=== PATIENT | male | born 1935 | race Caucasian/White ===

== ENCOUNTER 2018-04-10 11:10 | Outpatient (CLI) | payer MEDICARE ==
--- NOTE | 2018-04-10 11:50 | RAD ---
CERVICAL SPINE RADIOGRAPHS 4 VIEWS: DATE: 04/10/2018. PROVIDED CLINICAL HISTORY: Neck pain. FINDINGS: Comparison is made with the study dated 12/14/2014. Postoperative changes of the ACDF are again noted at C3-4 and C6-7. There is no evidence for hardware loosening or migration. Cervical degenerative changes are redemonstrated, with probable worsening of degenerative disk change at C5-6. The visuali zed lung apices appear clear. No prevertebral soft tissue swelling apparent. No evidence for a frac ture. IMPRESSION: Cervical postoperative and degenerative change. POS: [facility]
== END 2018-04-10 11:11 | disposition home or self-care (01) ==
LOC: TBSIIMAG 11:10
PROVIDERS: ATTEND Neurological Surgery
DX: M50.30 Other cervical disc degeneration, unspecified cervical region (principal); M47.812 Spondylosis without myelopathy or radiculopathy, cervical region; Z98.1 Arthrodesis status
CPT/HCPCS: 72040

== ENCOUNTER 2019-02-09 19:30 | Outpatient (CLI) | payer MEDICARE | END 2019-02-09 19:31 | disposition home or self-care (01) | LOC: SLEEPLAB 19:30 | PROVIDERS: ATTEND Internal Medicine | DX: G47.33 Obstructive sleep apnea (adult) (pediatric) (principal); G25.81 Restless legs syndrome; I10 Essential (primary) hypertension; R06.83 Snoring; R53.83 Other fatigue | CPT/HCPCS: 95811 ==

== ENCOUNTER 2023-03-07 08:42 | Emergency (ER) | payer MEDICARE ==
[2023-03-07 09:57] LABS: #Basophils 0.1 thou/uL (0.0-0.2); #Eosinphils 0.4 thou/uL (0.0-0.7); #Monocytes 1.4 thou/uL (0.11-0.59); #Neutrophils 4.2 thou/uL (1.40-6.50); %Basophils 0.9 % (0.0-1.0); %Eosinophils 4.7 % (0.0-10.0); %Lymphocytes 21.5 % (21.0-51.0); %Monocytes 17.6 % (0.0-10.0); %Neutrophils 54.4 % (42.0-75.0); Hematocrit 43.5 % (42.0-52.0); Hemoglobin 14.7 g/dL (14.0-18.0); Mean Corpuscular HGB CONC 33.8 g/dL (32.0-36.0); Mean Corpuscular Volume 88.8 fl (78.0-98.0); Mean Platelet Volume 10.1 fL (7.4-10.4); Platelet Count 268 10x3/uL (130-400); RBC Distribution Width 12.9 % (11.5-14.5); White Blood Cell (WBC) Count 7.7 10x3/uL (4.8-10.8)
[2023-03-07 10:07] LABS: SARS-CoV-2 NAA Rapid Test Not Detected (NotDetected)
[2023-03-07 10:23] LABS: ALT (SGPT) 18 U/L (8-55); AST (SGOT) 15 U/L (5-34); Alkaline Phosphatase 137 U/L (40-110); Anion Gap 11 mmol/L (10-20); BUN (Urea Nitrogen) 8 mg/dL (8.4-25.7); Bilirubin, Total 0.6 mg/dL (0.2-1.2); Calc. Creatinine Clearance 0 mL/min (70-130); Calcium 8.3 mg/dL (7.8-10.44); Carbon Dioxide 33 mmol/L (23-31); Chloride 98 mmol/L (98-107); Estimated GFR 85; Globulin 3.2 g/dL (2.4-3.5); Glucose 127 mg/dL (83-110); Potassium 3.5 mmol/L (3.5-5.1); Protein, Total 7.2 g/dL (5.8-8.1); Sodium 138 mmol/L (136-145)
== END 2023-03-07 11:02 | disposition home or self-care (01) ==
LOC: ERS 08:42
DX: J18.9 Pneumonia, unspecified organism (principal); K21.9 Gastro-esophageal reflux disease without esophagitis; I10 Essential (primary) hypertension; Z79.899 Other long term (current) drug therapy; Z79.82 Long term (current) use of aspirin
CPT/HCPCS: 0240U; 71046; 80053; 83605; 85025; 87040; 99283; 36415

== ENCOUNTER 2023-08-30 07:44 | Outpatient (CLI) | payer MEDICARE ==
[2023-08-30] MEDS ORDERED: Iopamidol 370 76% 100 ML VIAL ONE (12:07)
== END 2023-08-30 07:45 | disposition home or self-care (01) ==
LOC: CT 07:44
PROVIDERS: ATTEND Internal Medicine Gastroenterology
DX: C18.0 Malignant neoplasm of cecum (principal); K63.9 Disease of intestine, unspecified; Z98.890 Other specified postprocedural states
CPT/HCPCS: 71260; 74177; 82565

== ENCOUNTER 2024-01-28 12:01 | Outpatient (CLI) | payer MEDICARE | END 2024-01-28 12:02 | disposition home or self-care (01) | LOC: RAD 12:01 | PROVIDERS: ATTEND Internal Medicine Critical Care Medicine | DX: R06.00 Dyspnea, unspecified (principal) | CPT/HCPCS: 71046 ==

== ENCOUNTER 2024-02-24 14:20 | Outpatient (CLI) | payer MEDICARE | END 2024-02-24 14:21 | disposition home or self-care (01) | LOC: RAD 14:20 | PROVIDERS: ATTEND Internal Medicine Critical Care Medicine | DX: R06.00 Dyspnea, unspecified (principal) | CPT/HCPCS: 71046 ==